=== PATIENT | female | born 1965 | race Two or more races ===

== ENCOUNTER → 2022-07-09 | Outpatient (CLI) | payer OTHER, BC ==
[~2022-07-09] MED LIST: BC PILLS
== END | disposition home or self-care (01) ==
LOC: LAB SHORT 08:00
DX: R30.0 Dysuria (principal)
CPT/HCPCS: 87077; 87086; 87186

== ENCOUNTER → 2022-08-21 | Outpatient (CLI) | payer OTHER, BC | END | disposition home or self-care (01) | LOC: LAB SHORT 14:00 → LAB 14:00 | DX: R35.0 Frequency of micturition (principal) | CPT/HCPCS: 87086 ==